=== PATIENT | male | born 1970 | race Hispanic/Latino ===

== ENCOUNTER 2020-04-19 10:20 | Emergency (ER) | payer SELFPAY ==
[2020-04-19] MEDS ORDERED: TETANUS/DIPHTHERIA TOXOID [ADULT] 0.5 ML VIAL IM ONE (12:08)
[2020-04-19] MEDS ORDERED: OCTYL 2-CYANOACRYLATE 1 EACH TP ONE (12:09)
== END 2020-04-19 12:25 | disposition home or self-care (01) ==
LOC: EDH 10:20
DX: S01.21XA Laceration without foreign body of nose, initial encounter (principal); X58.XXXA Exposure to other specified factors, initial encounter; Y93.89 Activity, other specified; Y92.89 Other specified places as the place of occurrence of the external cause; Y99.8 Other external cause status
CPT/HCPCS: 12051; 90471; 90714